=== PATIENT | female | born 1960 | race Two or more races ===

== ENCOUNTER 2019-10-10 08:42 | Outpatient (CLI) | payer OTHER | END 2019-10-10 08:47 | disposition home or self-care (01) | LOC: SONOGRAMA 08:42 | DX: E04.2 Nontoxic multinodular goiter (principal) ==

== ENCOUNTER 2020-08-03 10:05 | Outpatient (CLI) | payer OTHER | END 2020-08-03 10:15 | disposition home or self-care (01) | LOC: SONOGRAMA 10:05 | PROVIDERS: ATTEND Pathology Anatomic Pathology & Clinical Pathology | DX: D34 Benign neoplasm of thyroid gland (principal); E04.2 Nontoxic multinodular goiter; E04.8 Other specified nontoxic goiter; E07.89 Other specified disorders of thyroid ==

== ENCOUNTER 2022-05-23 09:10 | Outpatient (CLI) | payer OTHER | END 2022-05-23 09:12 | disposition home or self-care (01) | LOC: SONOGRAMA 09:10 | PROVIDERS: ATTEND Pathology Anatomic Pathology & Clinical Pathology | DX: E04.2 Nontoxic multinodular goiter (principal); E06.3 Autoimmune thyroiditis ==